=== PATIENT | female | born 1980 | race Caucasian/White ===

== ENCOUNTER 2017-10-12 11:37 | Inpatient (IN) | payer OTHER ==
[2017-10-12] MEDS: KETOROLAC 60 MG INJ IM (17:42)
[2017-10-12] MEDS: ONDANSETRON 4 MG INJ IV (19:43)
[2017-10-12] MEDS: morphine 10 MG INJ IV (19:43)
[2017-10-12 19:45] LABS: ADD MAN DIFF? NO
[2017-10-12 19:48] LABS: WHITE BLOOD COUNT 7.4 10^3/ul (4.8-10.8)
[2017-10-12 19:48] LABS: BASOPHILS % 0.5 % (0.0-2.0); EOSINOPHILS # 0.2 10^3/ul (0.0-0.5); HEMATOCRIT 33.3 % (37.0-47.0); HEMOGLOBIN 10.4 g/dl (12.0-16.0); LYMPHOCYTES % 27.1 % (15.0-51.0); MEAN CORPUSCULAR HEMOGLOBIN 24.6 pg (29.0-33.0); MEAN CORPUSCULAR HGB CONC 31.2 g/dl (32.0-37.0); MEAN CORPUSCULAR VOLUME 78.7 fl (82.0-101.0); MEAN PLATELET VOLUME 11.6 fl (7.4-10.4); MONOCYTE # 0.6 10^3/ul (0.3-0.9); MONOCYTES % 7.5 % (0.0-11.0); NEUTROPHIL # 4.6 10^3/ul (1.6-7.5); NEUTROPHILS % 61.5 % (39.0-77.0); PLATELET COUNT 259 10^3/UL (140-415); RED BLOOD COUNT 4.23 10^6/ul (4.20-5.40); RED CELL DISTRIBUTION WIDTH 16.9 % (11.5-14.5)
[2017-10-12 20:20] LABS: ANION GAP 12 (8-16); BLOOD UREA NITROGEN 14 mg/dl (7-20); CALCIUM 8.9 mg/dl (8.4-10.2); CARBON DIOXIDE 25 mmol/L (21-31); CHLORIDE 106 mmol/L (97-110); CREATININE 0.76 mg/dl (0.44-1.00); GLUCOSE 159 mg/dl (70-220); POTASSIUM 3.4 mmol/L (3.5-5.1); SODIUM 140 mmol/L (135-144)
[2017-10-12] MEDS ORDERED: KETAMINE 500 MG INJ (21:07)
[2017-10-12] MEDS: PROPOFOL 200 MG INJ IV (21:10)
[2017-10-12] MEDS: LIDOCAINE 1%/EPI 30 ML INJ INJ (21:10)
[2017-10-12] MEDS: HYDROmorphONE 1 MG/ML SYG IV (22:11)
[2017-10-12] MEDS ORDERED: NACL 0.9% 3 ML SYG IV (22:30)
[2017-10-13] MEDS: HYDROCODONE/APAP (5/325) TAB PO (00:09)
[2017-10-13] MEDS: HYDROmorphONE 1 MG/ML SYG IV ×5 (02:05→15:16)
[2017-10-13] MEDS: LORAZEPAM 2 MG INJ IV (04:33)
[2017-10-13 05:36] LABS: ADD MAN DIFF? NO
[2017-10-13 05:43] LABS: BASOPHILS % 0.6 % (0.0-2.0); EOSINOPHILS # 0.2 10^3/ul (0.0-0.5); EOSINOPHILS % 3.2 % (0.0-7.0); HEMATOCRIT 29.6 % (37.0-47.0); HEMOGLOBIN 9.1 g/dl (12.0-16.0); LYMPHOCYTES # 2.1 10^3/ul (0.8-2.9); LYMPHOCYTES % 28.4 % (15.0-51.0); MEAN CORPUSCULAR HEMOGLOBIN 24.5 pg (29.0-33.0); MEAN CORPUSCULAR HGB CONC 30.7 g/dl (32.0-37.0); MEAN CORPUSCULAR VOLUME 79.6 fl (82.0-101.0); MEAN PLATELET VOLUME 11.2 fl (7.4-10.4); MONOCYTE # 0.6 10^3/ul (0.3-0.9); MONOCYTES % 7.6 % (0.0-11.0); NEUTROPHIL # 4.4 10^3/ul (1.6-7.5); NEUTROPHILS % 59.9 % (39.0-77.0); PLATELET COUNT 222 10^3/UL (140-415); RED BLOOD COUNT 3.72 10^6/ul (4.20-5.40); RED CELL DISTRIBUTION WIDTH 17.3 % (11.5-14.5)
[2017-10-13 05:43] LABS: WHITE BLOOD COUNT 7.3 10^3/ul (4.8-10.8)
[2017-10-13 06:15] LABS: ALANINE AMINOTRANSFERASE 52 IU/L (13-69); ALBUMIN 3.2 g/dl (3.3-4.9); ALKALINE PHOSPHATASE 71 IU/L (42-121); ANION GAP 9 (8-16); ASPARTATE AMINO TRANSFERASE 32 IU/L (15-46); BLOOD UREA NITROGEN 13 mg/dl (7-20); CALCIUM 8.4 mg/dl (8.4-10.2); CARBON DIOXIDE 26 mmol/L (21-31); CHLORIDE 108 mmol/L (97-110); CHOL/HDL RATIO 2.1 RATIO; CHOLESTEROL 125 mg/dl (100-200); CREATININE 0.68 mg/dl (0.44-1.00); GLUCOSE 91 mg/dl (70-220); HDL CHOLESTEROL 59 mg/dl (34-82); LDL CHOLESTEROL,CALCULATED 58 mg/dl; MAGNESIUM 1.9 mg/dl (1.7-2.5); POTASSIUM 4.4 mmol/L (3.5-5.1); SODIUM 139 mmol/L (135-144); TOTAL PROTEIN 6.1 g/dl (6.1-8.1); TRIGLYCERIDES 41 mg/dl (0-149)
[2017-10-13 07:09] LABS: HEMOGLOBIN A1C 5.5 % (0-5.9)
[2017-10-13] MEDS: ONDANSETRON 4 MG INJ IV ×2 (08:14→15:16)
[2017-10-13] MEDS: ALPRAZOLAM 0.25 MG TAB PO (16:58)
[2017-10-13] MEDS: HYDROmorphONE 2 MG/ML SYG IV ×2 (16:58→20:47)
[2017-10-13] MEDS: ZOLPIDEM 5 MG TAB PO (22:41)
[2017-10-14] MEDS: HYDROmorphONE 2 MG/ML SYG IV ×6 (02:37→21:57)
[2017-10-14 08:08] LABS: ADD MAN DIFF? NO
[2017-10-14 08:16] LABS: BASOPHILS % 0.2 % (0.0-2.0); EOSINOPHILS # 0.1 10^3/ul (0.0-0.5); EOSINOPHILS % 1.2 % (0.0-7.0); HEMATOCRIT 32.6 % (37.0-47.0); LYMPHOCYTES # 1.3 10^3/ul (0.8-2.9); LYMPHOCYTES % 15.8 % (15.0-51.0); MEAN CORPUSCULAR HEMOGLOBIN 24.4 pg (29.0-33.0); MEAN CORPUSCULAR HGB CONC 30.7 g/dl (32.0-37.0); MEAN CORPUSCULAR VOLUME 79.5 fl (82.0-101.0); MEAN PLATELET VOLUME 11.5 fl (7.4-10.4); MONOCYTE # 0.7 10^3/ul (0.3-0.9); NEUTROPHILS % 74.6 % (39.0-77.0); PLATELET COUNT 240 10^3/UL (140-415)
[2017-10-14 08:16] LABS: WHITE BLOOD COUNT 8.1 10^3/ul (4.8-10.8)
[2017-10-14 08:27] LABS: IRON 13 ug/dl (35-150)
[2017-10-14 08:30] LABS: ANION GAP 11 (8-16); BLOOD UREA NITROGEN 10 mg/dl (7-20); CALCIUM 8.6 mg/dl (8.4-10.2); CARBON DIOXIDE 28 mmol/L (21-31); CHLORIDE 101 mmol/L (97-110); CREATININE 0.71 mg/dl (0.44-1.00); GLUCOSE 92 mg/dl (70-220); POTASSIUM 4.2 mmol/L (3.5-5.1); SODIUM 136 mmol/L (135-144)
[2017-10-14 08:36] LABS: % IRON SATURATION 4 % SAT (22-52); TOTAL IRON BINDING CAPACITY 336 ug/dl (241-421)
[2017-10-14] MEDS: ACETAMINOPHEN 325 MG TAB PO (09:19)
[2017-10-14] MEDS: DIPHENHYDRAMINE 25 MG CAP PO ×2 (13:46→20:29)
[2017-10-15] MEDS: DIPHENHYDRAMINE 25 MG CAP PO ×4 (00:30→19:52)
[2017-10-15 02:31] LABS: ADD UMIC NO; UR ASCORBIC ACID NEGATIVE (NEGATIVE); UR BILIRUBIN (Dip) NEGATIVE (NEGATIVE); UR BLOOD (Dip) NEGATIVE (NEGATIVE); UR CLARITY CLEAR (CLEAR); UR COLOR YELLOW (YELLOW); UR GLUCOSE (Dip) NEGATIVE (NEGATIVE); UR KETONES (Dip) NEGATIVE (NEGATIVE); UR LEUKOCYTE ESTERASE (Dip) NEGATIVE Leu/ul (NEGATIVE); UR NITRITE (Dip) NEGATIVE (NEGATIVE); UR SPECIFIC GRAVITY (Dip) 1.013 (1.003-1.030); UR TOTAL PROTEIN (Dip) NEGATIVE (NEGATIVE); UR UROBILINOGEN (Dip) 1+ mg/dL (NEGATIVE)
[2017-10-15] MEDS: HYDROmorphONE 2 MG/ML SYG IV ×7 (04:22→22:56)
[2017-10-15] MEDS: ONDANSETRON 4 MG INJ IV (07:53)
[2017-10-15] MEDS: ZOLPIDEM 5 MG TAB PO (21:16)
[2017-10-16] MEDS: DIPHENHYDRAMINE 25 MG CAP PO ×4 (01:04→19:38)
[2017-10-16] MEDS: HYDROmorphONE 2 MG/ML SYG IV ×8 (01:09→22:32)
[2017-10-16] MEDS: HYDROCODONE/APAP (5/325) TAB PO (03:54)
[2017-10-16] MEDS: FERROUS SULFATE (EC) 325 MG TAB PO ×2 (14:31→21:02)
[2017-10-16] MEDS: ALPRAZOLAM 0.25 MG TAB PO (14:41)
[2017-10-16] MEDS: POLYETHYLENE GLYCOL 17 GM PACKET PO (22:30)
[2017-10-16] MEDS: DOCUSATE SODIUM 100 MG CAP PO (23:38)
[2017-10-17] MEDS: HYDROCODONE/APAP (5/325) TAB PO ×2 (00:40→15:08)
[2017-10-17] MEDS: DIPHENHYDRAMINE 25 MG CAP PO ×4 (02:07→19:00)
[2017-10-17] MEDS: HYDROmorphONE 2 MG/ML SYG IV ×5 (02:07→16:07)
[2017-10-17 07:45] LABS: ADD MAN DIFF? NO
[2017-10-17 07:47] LABS: BASOPHILS % 0.3 % (0.0-2.0); EOSINOPHILS # 0.2 10^3/ul (0.0-0.5); HEMATOCRIT 30.6 % (37.0-47.0); HEMOGLOBIN 9.7 g/dl (12.0-16.0); LYMPHOCYTES # 1.1 10^3/ul (0.8-2.9); LYMPHOCYTES % 17.8 % (15.0-51.0); MEAN CORPUSCULAR HEMOGLOBIN 24.4 pg (29.0-33.0); MEAN CORPUSCULAR HGB CONC 31.7 g/dl (32.0-37.0); MEAN CORPUSCULAR VOLUME 77.1 fl (82.0-101.0); MEAN PLATELET VOLUME 10.5 fl (7.4-10.4); MONOCYTE # 0.7 10^3/ul (0.3-0.9); NEUTROPHIL # 4.1 10^3/ul (1.6-7.5); NEUTROPHILS % 67.4 % (39.0-77.0); PLATELET COUNT 268 10^3/UL (140-415); RED BLOOD COUNT 3.97 10^6/ul (4.20-5.40); RED CELL DISTRIBUTION WIDTH 16.6 % (11.5-14.5)
[2017-10-17 08:09] LABS: BLOOD UREA NITROGEN 9 mg/dl (7-20); CALCIUM 8.7 mg/dl (8.4-10.2); CHLORIDE 98 mmol/L (97-110); CREATININE 0.59 mg/dl (0.44-1.00); POTASSIUM 3.7 mmol/L (3.5-5.1); SODIUM 135 mmol/L (135-144)
[2017-10-17] MEDS: FERROUS SULFATE (EC) 325 MG TAB PO ×2 (08:14→21:28)
[2017-10-17] MEDS: POLYETHYLENE GLYCOL 17 GM PACKET PO (08:14)
[2017-10-17] MEDS: DOCUSATE SODIUM 100 MG CAP PO ×2 (08:14→21:28)
[2017-10-17 08:36] LABS: ANION GAP 12 (8-16)
[2017-10-17 09:03] LABS: CARBON DIOXIDE 29 mmol/L (21-31); GLUCOSE 97 mg/dl (70-220)
[2017-10-17] MEDS: SOD FERRIC GLUC COMPLX 125 MG in SOD CHLORIDE 0.9% 100 ML IVPB (15:48)
[2017-10-17] MEDS: ALPRAZOLAM 0.25 MG TAB PO (19:47)
[2017-10-18] MEDS: DIPHENHYDRAMINE 25 MG CAP PO ×3 (01:00→13:00)
[2017-10-18] MEDS: HYDROCODONE/APAP (5/325) TAB PO ×2 (03:00→10:22)
[2017-10-18] MEDS: DOCUSATE SODIUM 100 MG CAP PO (09:01)
[2017-10-18] MEDS: FERROUS SULFATE (EC) 325 MG TAB PO (09:01)
[2017-10-18] MEDS: POLYETHYLENE GLYCOL 17 GM PACKET PO (09:01)
[2017-10-18] MEDS: SOD FERRIC GLUC COMPLX 125 MG in SOD CHLORIDE 0.9% 100 ML IVPB ×2 (14:41→14:43)
== END 2017-10-18 17:35 | disposition home or self-care (01) | DRG 201 ==
LOC: MS4 22:16 → FTE 11:37
PROC: 0W9930Z Drainage of Right Pleural Cavity with Drainage Device, Percutaneous Approach (ICD-10-PCS; principal; 2017-10-12)
DX: J93.11 Primary spontaneous pneumothorax (principal); D50.9 Iron deficiency anemia, unspecified; Z72.0 Tobacco use; F41.9 Anxiety disorder, unspecified
CPT/HCPCS: 36415; 71045; 74176; 80048; 80053; 80061; 81003; 83036; 83540; 83735; 84443; 85025; 87086; 96372; 96374; 96375; 96376; 99285-25

== ENCOUNTER 2019-02-04 08:32 | Emergency (ER) | payer OTHER ==
[2019-02-04] MEDS: LIDOCAINE 1% (MDV) 20 ML INJ SC (09:08)
[2019-02-04] MEDS: LIDOCAINE 4% CR TOP (09:09)
[2019-02-04] MEDS: BACITRACIN 0.9 GM OINT TOP (10:18)
== END 2019-02-04 11:03 | disposition home or self-care (01) ==
LOC: FTE 08:32
DX: L03.012 Cellulitis of left finger (principal); L02.512 Cutaneous abscess of left hand; F17.210 Nicotine dependence, cigarettes, uncomplicated; L02.511 Cutaneous abscess of right hand; L03.011 Cellulitis of right finger
CPT/HCPCS: 10061; 99283-25